=== PATIENT | female | born 1985 | race Caucasian/White ===

== ENCOUNTER → 2016-11-30 | Outpatient (CLI) | payer BC ==
[~2016-11-30] MED LIST: ALBUAER2 INH; BUDE180I INH; LEVO50TA6 PO
[2016-11-30 18:00] LABS: THYROID STIMULATING HORMONE 1.34 uIu/ml (0.300-4.500)
== END | disposition home or self-care (01) ==
LOC: C.LAB1850 16:07
PROVIDERS: ATTEND Physician Assistant
DX: E03.9 Hypothyroidism, unspecified (principal)

== ENCOUNTER → 2017-07-03 | Outpatient (CLI) | payer BC | END | disposition home or self-care (01) | LOC: C.LAB1850 13:42 | PROVIDERS: ATTEND Physician Assistant | DX: E03.9 Hypothyroidism, unspecified (principal) ==

== ENCOUNTER → 2017-10-16 | Outpatient (CLI) | payer BC | END | disposition home or self-care (01) | LOC: C.PAPS 09:37 | PROVIDERS: ATTEND Obstetrics & Gynecology | DX: Z12.4 Encounter for screening for malignant neoplasm of cervix (principal) ==

== ENCOUNTER → 2017-10-16 | Outpatient (CLI) | payer BC ==
[2017-10-16 17:06] LABS: BASO % 0.1 %; BASO ABS # 0.01 K/uL (0-0.2); EOS % 1.5 %; EOS ABS # 0.11 K/uL (0-0.5); HEMATOCRIT 34.1 % (37-47); HEMOGLOBIN 11.2 g/dL (12.0-16.0); IG# 0.02 K/uL (0.00-0.02); LYMPH ABS # 1.44 K/uL (1.2-3.4); MEAN CELL VOLUME 81.2 fL (80-100); MEAN CORPUSCULAR HEMOGLOBIN 26.7 pg (25-34); MEAN CORPUSCULAR HGB CONC 32.8 g/dl (32-36); MEAN PLATELET VOLUME 10.3 fL (7.4-10.4); MONO % 5.7 %; MONO ABS # 0.43 K/uL (0.11-0.59); NEUT % 73.4 %; NEUT ABS # 5.55 K/uL (1.4-6.5); PLATELET COUNT 248 K/uL (130-400); RED CELL DISTRIBUTION WIDTH CV 13.9 % (11.5-14.5); RED CELL DISTRIBUTION WIDTH SD 41.3 fL (36.4-46.3); WHITE BLOOD COUNT 7.56 K/uL (4.8-10.8)
== END | disposition home or self-care (01) ==
LOC: C.LAB1850 15:21
PROVIDERS: ATTEND Obstetrics & Gynecology
DX: O09.521 Supervision of elderly multigravida, first trimester (principal); O99.280 Endocrine, nutritional and metabolic diseases complicating pregnancy, unspecified trimester

== ENCOUNTER → 2017-11-06 | Outpatient (CLI) | payer BC | END | disposition home or self-care (01) | LOC: C.LAB1850 16:26 | PROVIDERS: ATTEND Obstetrics & Gynecology | DX: O99.280 Endocrine, nutritional and metabolic diseases complicating pregnancy, unspecified trimester (principal); Z3A.00 Weeks of gestation of pregnancy not specified ==

== ENCOUNTER → 2018-02-03 | Outpatient (CLI) | payer BC, OTHER | END | disposition home or self-care (01) | LOC: C.LAB1850 15:59 | PROVIDERS: ATTEND Physician Assistant | DX: E03.9 Hypothyroidism, unspecified (principal) ==

== ENCOUNTER 2024-05-26 08:03 | Inpatient (IN) ==
[2024-05-26] MEDS ORDERED: LIDOCAINE 1% LOCAL 20 ML VIAL INFIL PRN (08:33)
[2024-05-26] MEDS ORDERED: CALCIUM CARBONATE 500 MG CHEWABLE TAB PO PRN (08:33)
[2024-05-26] MEDS ORDERED: OXYTOCIN 30 UNITS/NSS 30 UNITS/500 ML BAG IV PRN ×2 (08:33→20:06)
--- NOTE | 2024-05-26 08:47 | History & Physical Report ---
Date of Service May 26, 2024 Assessment & Plan (1) Elderly multigravida: (2) Group beta Strep positive: (3) Large for gestational age fetus affecting management of mother: Plan admit, iv, labs. start pcn for gbs pos. arom when appropriate. start pitocin induction. fhts categ 1. 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 No rom, vb. +FM. No ctx. PNC c/b 1. AMA 2. Hypothyroid 3. GBS pos urine 3. LGA, efw 91% at 36wks PNL rhpos, ri, gbs + OBH: x 4, largest 9# 11oz GYNH: nl paps no stds Allergies Allergy/AdvReac Type Severity Reaction Status Date / Time No Known Drug Allergies Allergy Unknown Verified 05/26/24 08:17 Home Medications Medication Instructions Recorded Confirmed Type albuterol sulfate 90 mcg/actuation 2 puff inhalation QID PRN 09/19/23 05/26/24 Rx aerosol inhaler shortness of breath or wheezing #8.5 grams 21-iron fu-folic acid 1 tab PO DAILY 10/11/23 05/25/24 History [ Complete] ferrous sulfate 325 mg (65 mg 325 mg PO DAILY 03/30/24 05/25/24 History iron) tablet (Feosol) clotrimazole 1 % vaginal cream 1 appful vaginal ONCE #45 grams 04/16/24 05/25/24 Rx Patient History Medical History History of chicken pox Spontaneous Goiter diffuse, nontoxic Hypothyroid History of vaginal delivery Asthma Surgical History [place] teeth extracted Family History Father Hypertension Heart disease Stroke Other No history of previous surgery No known health problems Denies family history of Ovarian cancer Breast cancer Colorectal cancer Uterine cancer Social History Smoking Status: Former smoker Tobacco Type: Cigarettes Age Started Using Tobacco: 12; Age Quit Using Tobacco: 30; packs per day: 0.5; Second Hand Exposure: No; Do You Dip or Chew Tobacco: No; Hx Alcohol Use: Yes Alcohol type: wine Alcohol Intake Frequency: 2-4 x/Month Hx Substance Use: No Preferred Language: Swedish Visual Impairment: No Limitations Hearing Ability: Normal Sde Required: No Beliefs That Will Affect Care: None marital status: marital status details: Jesús Hastings (42) [phone] Current Living Situation: Spouse and Family Current Living Situation Comment: Patient lives with spouse, 4 children, and a dog. current occupational status: employed current occupation: [employer] How many Children do You have: 4 Feels Safe at Home: Yes Safety Concerns: Feels Safe At This Time Childhood Exposure to Second-Hand Smoke: Yes Diet: regular Dental Care, Regularly: Yes Physical Activity Frequency: 3-4 Times per Week Seatbelt Use: always Sunscreen Use: Yes Assistive Devices: None Review of Systems as per Subjective / HPI Physical Exam Constitutional: WD/WN, vitals as above Respiratory: normal respiratory effort, lungs clear to auscultation Cardiovascular: Rate/Rhythm: regular rate and regular rhythm Gastrointestinal (Abdomen): soft gravid nt efw 8-9# Musculoskeletal: no edema nontender calves Neurologic: grossly normal Psychiatric: A+Ox3, euthymic affect Genitourinary: OB Exam Abdomen: + vertex Manual OB Exam: + cervical dilation 3 cm, + cervical effacement 50% and + station -2 OB Exam Monitor Tracing: + external FHT monitor used, + external uterine monitor used, + category I and + normal FHT variability Results & Data Vital Signs (Past 12 Hours) Vital Signs Temp Pulse Resp BP 05/26/24 08:20 98.1 F 100 H 18 105/73 05/26/24 08:13 100 H 105/73 Coding Level of Care Code None Diagnoses Elderly multigravida O09.529 Group beta Strep positive B95.1 Large for gestational age fetus affecting management of mother O36.60X0
[2024-05-26] MEDS: LACTATED RINGER'S 1,000 ML IV SCH (08:55)
[2024-05-26] MEDS: OXYTOCIN 30 UNITS/NSS 30 UNITS/500 ML BAG IV PRN (08:59)
[2024-05-26] MEDS: PENICILLIN GK 6 MU in SODIUM CHLORIDE 0.9% 250 ML IV STA (09:00)
[2024-05-26 10:09] LABS: Hemoglobin 10.5 g/dl (12.0-16.0); Mean Corpuscular Hemoglobin 25.5 pg (25.0-34.0); Mean Corpuscular Hgb Conc 31.8 g/dL (32.0-36.0); Mean Corpuscular Volume 80.3 fL (80.0-100.0); Mean Platelet Volume 11.6 fL (9.4-12.4); Platelet Count 185 K/uL (130-400); RDW Coefficient of Variation 14.3 % (11.5-14.5); RDW Standard Deviation 41.4 fL (36.4-46.3); Red Blood Count 4.11 M/uL (4.20-5.40); White Blood Count 7.04 K/ul (4.8-10.8)
[2024-05-26] MEDS: PENICILLIN GK 3 MU in DEXTROSE 5% 100 ML IV PRN (12:37)
--- NOTE | 2024-05-26 12:38 | Labor Progress Brief Note ---
Date of Service May 26, 2024 Subjective denies pain Assessment & Plan (1) Encounter for induction of labor: (2) Large for gestational age fetus affecting management of mother: (3) Group beta Strep positive: (4) Hypothyroid in , antepartum: (5) Elderly multigravida: Plan will see how arom helps labor pattern. fhts categ 1. pcn for gbs pos. Admission and Anticipated Discharge Date Admission Date: May 26, 2024 Physical Exam Constitutional: WD/WN, vitals as above Genitourinary: Manual OB Exam: + cervical dilation (3-4), + cervical effacement 50%, + station -2 and + amniotic fluid (arom) clear OB Exam Monitor Tracing: + external FHT monitor used, + external uterine monitor used, + category I and + normal FHT variability Results & Data Vital Signs (Past 12 Hours) Vital Signs Temp Pulse Resp BP 05/26/24 12:23 88 05/26/24 12:23 130/78 05/26/24 11:31 85 05/26/24 11:31 117/82 05/26/24 10:28 81 05/26/24 10:28 136/79 05/26/24 09:35 86 05/26/24 09:35 127/81 05/26/24 08:20 98.1 F 100 H 18 105/73 05/26/24 08:13 100 H 105/73 05/26/24 08:12 18 05/26/24 08:12 98.1 F 18 Coding Level of Care Code None Diagnoses Encounter for induction of labor Z34.90 Large for gestational age fetus affecting management of mother O36.60X0 Group beta Strep positive B95.1 Hypothyroid in , antepartum O99.280; E03.9 Elderly multigravida O09.529
[2024-05-26] MEDS: fentANYL 2 MCG/ML BUPIVacaine 0.125%-NSS 100ML BAG ONE (14:43)
[2024-05-26] MEDS: LIDOCAINE 2%/EPINEPHRINE 1:200,000 20 ML PF ONE (14:43)
--- NOTE | 2024-05-26 14:55 | Anesthesiology Consultation ---
Date of Service May 26, 2024 Assessment & Plan Chart Review Chart Review: Acceptable Risk for Labor Epidural Consults Requested none History Height/Weight Height: 5 ft 9.5 in Weight: 128.779 kg Allergies Allergy/AdvReac Type Severity Reaction Status Date / Time No Known Drug Allergies Allergy Unknown Verified 05/26/24 08:17 Medications Home Medications Medication Instructions Recorded Confirmed Last Taken albuterol sulfate 90 mcg/actuation 2 puff inhalation QID PRN 09/19/23 05/26/24 05/24/24 21:00 aerosol inhaler shortness of breath or wheezing #8.5 grams 21-iron fu-folic acid 1 tab PO DAILY 10/11/23 05/25/24 05/26/24 07:00 [ Complete] ferrous sulfate 325 mg (65 mg 325 mg PO DAILY 03/30/24 05/25/24 05/25/24 07:00 iron) tablet (Feosol) clotrimazole 1 % vaginal cream 1 appful vaginal ONCE #45 grams 04/16/24 05/25/24 Unknown Active Medications Generic Name Dose Route Start Last Admin Trade Name Freq PRN Reason Stop Dose Admin Oxytocin 30 units in 500 mls @ 19 mls/hr 05/26/24 08:33 05/26/24 14:00 Pitocin 30 Units/Nss IV 05/28/24 08:32 1.14 units/hr .Q24H PRN 19 mls/hr Labor Induction/Augmentation Titration Protocol 1.14 UNITS/HR Penicillin G Potassium 3 mu/ 106 mls @ 100 mls/hr 05/26/24 11:33 05/26/24 12:37 Dextrose IV 06/05/24 11:32 100 mls/hr Q4H PRN Administration GBS(+) Until Delivery Past Medical History Medical History History of chicken pox Spontaneous Goiter diffuse, nontoxic Hypothyroid History of vaginal delivery Asthma Past Family History Family History Father Hypertension Heart disease Stroke Other No history of previous surgery No known health problems Denies family history of Ovarian cancer Breast cancer Colorectal cancer Uterine cancer Past Surgical History Surgical History [place] teeth extracted Social History Smoking Status: Former smoker Do You Dip or Chew Tobacco: No Hx Alcohol Use: Yes Alcohol type: wine Hx Substance Use: No substance use type: does not use Physical Exam Vital Signs Last Vital Signs Temp 37.1 C 05/26/24 14:21 Pulse 94 H 05/26/24 14:49 Resp 18 05/26/24 14:21 BP 114/58 L 05/26/24 14:47 Pulse Ox 96 05/26/24 14:49 Testing Laboratory Results 05/26/24 09:31
[2024-05-26] MEDS ORDERED: diphenhydrAMINE 50 MG/ML VIAL IV PRN (14:56)
[2024-05-26] MEDS ORDERED: NALBUPHINE HCL INJ 10 MG/ML AMP IV PRN (14:56)
[2024-05-26] MEDS ORDERED: SODIUM CHLORIDE 0.9% PF INJ 10 ML VIAL EPI PRN (14:56)
[2024-05-26] MEDS ORDERED: fentaNYL citrate PF 100 MCG/2 ML VIAL EPI PRN (14:56)
[2024-05-26] MEDS ORDERED: NALOXONE HCL 1 MG in SODIUM CHLORIDE 0.9% 1,000 ML IV PRN (14:56)
[2024-05-26] MEDS ORDERED: ROPIVACAINE 0.5% PF 5 MG/ML 20 ML VIAL EPI PRN (14:56)
[2024-05-26] MEDS ORDERED: NALOXONE HCL 0.4 MG/1 ML VIAL/CARP IV PRN (14:56)
[2024-05-26] MEDS ORDERED: LIDOCAINE 2% MPF LOCAL 5 ML VIAL EPI PRN (14:56)
[2024-05-26] MEDS ORDERED: BUPIVACAINE 0.25% PF 30 ML VIAL EPI PRN (14:56)
[2024-05-26] MEDS ORDERED: fentANYL 2 MCG/ML BUPIVacaine 0.125%-NSS 100ML BAG EPI PRN (14:56)
[2024-05-26] MEDS ORDERED: ePHEDrine sulfate 50 MG/ML AMP IV PRN (14:56)
[2024-05-26] MEDS: fentaNYL citrate PF 100 MCG/2 ML VIAL EPI STA (15:14)
[2024-05-26] MEDS: BUPIVACAINE 0.25% PF 30 ML VIAL EPI STA (15:14)
[2024-05-26] MEDS: SODIUM CHLORIDE 0.9% PF INJ 10 ML VIAL EPI STA (15:15)
[2024-05-26] MEDS: SODIUM CHLORIDE 0.9% PF INJ 10 ML VIAL ONE (15:17)
[2024-05-26] MEDS: LIDOCAINE 2%/EPINEPHRINE 1:200,000 20 ML PF EPI STA (15:17)
[2024-05-26] MEDS: BUPIVACAINE 0.25% PF 30 ML VIAL ONE (15:18)
[2024-05-26] MEDS: fentaNYL citrate PF 100 MCG/2 ML VIAL ONE (15:18)
--- NOTE | 2024-05-26 16:38 | Labor Progress Brief Note ---
Date of Service May 26, 2024 Subjective comfortable with epidural Assessment & Plan (1) Encounter for induction of labor: (2) Large for gestational age fetus affecting management of mother: (3) Group beta Strep positive: (4) Hypothyroid in , antepartum: (5) Elderly multigravida: Plan good cx change. c/w pit. fhts categ 1. Admission and Anticipated Discharge Date Admission Date: May 26, 2024 Physical Exam Constitutional: WD/WN, vitals as above Genitourinary: Manual OB Exam: + cervical dilation 6 cm, + cervical effacement 80% and + station -2 OB Exam Monitor Tracing: + external FHT monitor used, + external uterine monitor used (q3, not traced well. pit at 19), + category I and + normal FHT variability Results & Data Vital Signs (Past 12 Hours) Vital Signs Temp Pulse Resp BP Pulse Ox 05/26/24 16:35 94 05/26/24 16:35 90 05/26/24 16:34 94 05/26/24 16:34 89 05/26/24 16:34 89 05/26/24 16:34 114/66 05/26/24 16:29 97 05/26/24 16:29 97 H 05/26/24 16:24 95 05/26/24 16:24 87 05/26/24 16:22 94 05/26/24 16:22 91 H 05/26/24 16:19 97 05/26/24 16:19 89 05/26/24 16:16 93 05/26/24 16:16 84 05/26/24 16:14 96 05/26/24 16:14 97 H 05/26/24 16:10 93 05/26/24 16:10 84 05/26/24 16:09 97 05/26/24 16:09 84 05/26/24 16:04 94 05/26/24 16:04 99 H 05/26/24 16:04 93 05/26/24 16:04 91 H 05/26/24 16:04 108/69 05/26/24 15:59 99 05/26/24 15:59 106 H 05/26/24 15:54 95 05/26/24 15:54 92 H 05/26/24 15:51 93 05/26/24 15:51 93 H 05/26/24 15:49 94 05/26/24 15:49 95 H 05/26/24 15:49 108/69 05/26/24 15:45 94 05/26/24 15:45 104 H 05/26/24 15:44 95 05/26/24 15:44 121 H 05/26/24 15:40 94 05/26/24 15:40 103 H 05/26/24 15:39 96 05/26/24 15:39 96 H 05/26/24 15:36 96 H 05/26/24 15:36 104/58 L 05/26/24 15:35 16 05/26/24 15:35 98.2 F 16 05/26/24 15:34 97 05/26/24 15:34 110 H 05/26/24 15:33 94 05/26/24 15:33 95 H 05/26/24 15:29 93 05/26/24 15:29 100 H 05/26/24 15:27 94 05/26/24 15:27 96 H 05/26/24 15:24 95 05/26/24 15:24 90 05/26/24 15:21 94 05/26/24 15:21 93 H 05/26/24 15:19 97 05/26/24 15:19 110 H 05/26/24 15:19 99/55 L 05/26/24 15:14 94 05/26/24 15:14 94 H 05/26/24 15:09 95 05/26/24 15:09 106 H 05/26/24 15:09 94 05/26/24 15:09 99 H 05/26/24 15:04 96 05/26/24 15:04 120 H 05/26/24 15:04 108 H 05/26/24 15:04 109/58 L 05/26/24 15:03 94 05/26/24 15:03 97 H 05/26/24 14:59 96 05/26/24 14:59 92 H 05/26/24 14:54 95 05/26/24 14:54 91 H 05/26/24 14:49 96 05/26/24 14:49 94 H 05/26/24 14:47 97 H 05/26/24 14:47 114/58 L 05/26/24 14:46 93 05/26/24 14:46 95 H 05/26/24 14:46 84/60 L 05/26/24 14:44 95 05/26/24 14:44 99 H 05/26/24 14:44 109/55 L 05/26/24 14:42 96 H 05/26/24 14:42 126/67 05/26/24 14:40 86 05/26/24 14:40 129/78 05/26/24 14:39 96 05/26/24 14:39 89 05/26/24 14:34 97 05/26/24 14:34 104 H 05/26/24 14:29 97 05/26/24 14:29 106 H 05/26/24 14:24 96 05/26/24 14:24 89 05/26/24 14:23 85 05/26/24 14:23 131/84 05/26/24 14:21 18 05/26/24 14:21 98.8 F 18 05/26/24 14:19 95 05/26/24 14:19 90 05/26/24 14:14 96 05/26/24 14:14 85 05/26/24 14:09 95 05/26/24 14:09 85 05/26/24 14:06 93 05/26/24 14:06 98 H 05/26/24 14:04 97 05/26/24 14:04 89 05/26/24 13:59 97 05/26/24 13:59 96 H 05/26/24 13:31 87 05/26/24 13:31 111/81 05/26/24 13:30 18 05/26/24 13:30 98.1 F 18 05/26/24 12:38 97.9 F 05/26/24 12:23 88 05/26/24 12:23 130/78 05/26/24 11:31 85 05/26/24 11:31 117/82 05/26/24 10:28 81 05/26/24 10:28 136/79 05/26/24 09:35 86 05/26/24 09:35 127/81 05/26/24 08:20 98.1 F 100 H 18 105/73 05/26/24 08:13 100 H 105/73 05/26/24 08:12 18 05/26/24 08:12 98.1 F 18 Coding Level of Care Code None Diagnoses Encounter for induction of labor Z34.90 Large for gestational age fetus affecting management of mother O36.60X0 Group beta Strep positive B95.1 Hypothyroid in , antepartum O99.280; E03.9 Elderly multigravida O09.529
--- NOTE | 2024-05-26 18:30 | Labor Progress Brief Note ---
Date of Service May 26, 2024 Subjective feeling some increased pain with labor Assessment & Plan (1) Encounter for induction of labor: (2) Large for gestational age fetus affecting management of mother: (3) Group beta Strep positive: (4) Hypothyroid in , antepartum: (5) Elderly multigravida: Plan good cx change. c/w pit. fhts categ 1. Admission and Anticipated Discharge Date Admission Date: May 26, 2024 Physical Exam Constitutional: WD/WN, vitals as above Genitourinary: Manual OB Exam: + cervical dilation (ant lip), + cervical effacement 100% and + station + 1 OB Exam Monitor Tracing: + external FHT monitor used, + external uterine monitor used (q2-3 pit at 27), + category I and + normal FHT variability Results & Data Vital Signs (Past 12 Hours) Vital Signs Temp Pulse Resp BP Pulse Ox 05/26/24 18:24 96 05/26/24 18:24 98 H 05/26/24 18:19 96 05/26/24 18:19 95 H 05/26/24 18:15 90 05/26/24 18:15 113/64 05/26/24 18:14 95 05/26/24 18:14 92 H 05/26/24 18:09 96 05/26/24 18:09 92 H 05/26/24 18:07 94 05/26/24 18:07 95 H 05/26/24 18:04 96 05/26/24 18:04 95 H 05/26/24 18:00 94 05/26/24 18:00 89 05/26/24 18:00 132/80 05/26/24 17:59 96 05/26/24 17:59 89 05/26/24 17:54 95 05/26/24 17:54 93 H 05/26/24 17:51 94 05/26/24 17:51 92 H 05/26/24 17:49 96 05/26/24 17:49 101 H 05/26/24 17:45 90 05/26/24 17:45 95/50 L 05/26/24 17:44 96 05/26/24 17:44 93 H 05/26/24 17:43 94 05/26/24 17:43 93 H 05/26/24 17:40 18 05/26/24 17:40 99.1 F 18 05/26/24 17:39 95 05/26/24 17:39 92 H 05/26/24 17:36 94 05/26/24 17:36 91 H 05/26/24 17:34 95 05/26/24 17:34 95 H 05/26/24 17:32 93 H 05/26/24 17:32 96/52 L 05/26/24 17:30 94 05/26/24 17:30 92 H 05/26/24 17:29 97 05/26/24 17:29 98 H 05/26/24 17:24 97 05/26/24 17:24 92 H 05/26/24 17:19 98 05/26/24 17:19 94 H 05/26/24 17:17 94 H 05/26/24 17:17 112/65 05/26/24 17:14 97 05/26/24 17:14 100 H 05/26/24 17:09 96 05/26/24 17:09 92 H 05/26/24 17:04 96 05/26/24 17:04 93 H 05/26/24 17:04 94 05/26/24 17:04 92 H 05/26/24 17:02 95 H 05/26/24 17:02 103/54 L 05/26/24 16:59 95 05/26/24 16:59 112 H 05/26/24 16:54 94 05/26/24 16:54 97 H 05/26/24 16:50 93 05/26/24 16:50 91 H 05/26/24 16:49 96 05/26/24 16:49 96 H 05/26/24 16:44 95 05/26/24 16:44 93 H 05/26/24 16:44 94 05/26/24 16:44 93 H 05/26/24 16:40 16 05/26/24 16:40 99.1 F 16 05/26/24 16:39 96 05/26/24 16:39 89 05/26/24 16:35 94 05/26/24 16:35 90 05/26/24 16:34 94 05/26/24 16:34 89 05/26/24 16:34 89 05/26/24 16:34 114/66 05/26/24 16:29 97 05/26/24 16:29 97 H 05/26/24 16:24 95 05/26/24 16:24 87 05/26/24 16:22 94 05/26/24 16:22 91 H 05/26/24 16:19 97 05/26/24 16:19 89 05/26/24 16:16 93 05/26/24 16:16 84 05/26/24 16:14 96 05/26/24 16:14 97 H 05/26/24 16:10 93 05/26/24 16:10 84 05/26/24 16:09 97 05/26/24 16:09 84 05/26/24 16:04 94 05/26/24 16:04 99 H 05/26/24 16:04 93 05/26/24 16:04 91 H 05/26/24 16:04 108/69 05/26/24 15:59 99 05/26/24 15:59 106 H 05/26/24 15:54 95 05/26/24 15:54 92 H 05/26/24 15:51 93 05/26/24 15:51 93 H 05/26/24 15:49 94 05/26/24 15:49 95 H 05/26/24 15:49 108/69 05/26/24 15:45 94 05/26/24 15:45 104 H 05/26/24 15:44 95 05/26/24 15:44 121 H 05/26/24 15:40 94 05/26/24 15:40 103 H 05/26/24 15:39 96 05/26/24 15:39 96 H 05/26/24 15:36 96 H 05/26/24 15:36 104/58 L 05/26/24 15:35 16 05/26/24 15:35 98.2 F 16 05/26/24 15:34 97 05/26/24 15:34 110 H 05/26/24 15:33 94 05/26/24 15:33 95 H 05/26/24 15:29 93 05/26/24 15:29 100 H 05/26/24 15:27 94 05/26/24 15:27 96 H 05/26/24 15:24 95 05/26/24 15:24 90 05/26/24 15:21 94 05/26/24 15:21 93 H 05/26/24 15:19 97 05/26/24 15:19 110 H 05/26/24 15:19 99/55 L 05/26/24 15:14 94 05/26/24 15:14 94 H 05/26/24 15:09 95 05/26/24 15:09 106 H 05/26/24 15:09 94 05/26/24 15:09 99 H 05/26/24 15:04 96 05/26/24 15:04 120 H 05/26/24 15:04 108 H 05/26/24 15:04 109/58 L 05/26/24 15:03 94 05/26/24 15:03 97 H 05/26/24 14:59 96 05/26/24 14:59 92 H 05/26/24 14:54 95 05/26/24 14:54 91 H 05/26/24 14:49 96 05/26/24 14:49 94 H 05/26/24 14:47 97 H 05/26/24 14:47 114/58 L 05/26/24 14:46 93 05/26/24 14:46 95 H 05/26/24 14:46 84/60 L 05/26/24 14:44 95 05/26/24 14:44 99 H 05/26/24 14:44 109/55 L 05/26/24 14:42 96 H 05/26/24 14:42 126/67 05/26/24 14:40 86 05/26/24 14:40 129/78 05/26/24 14:39 96 05/26/24 14:39 89 05/26/24 14:34 97 05/26/24 14:34 104 H 05/26/24 14:29 97 05/26/24 14:29 106 H 05/26/24 14:24 96 05/26/24 14:24 89 05/26/24 14:23 85 05/26/24 14:23 131/84 05/26/24 14:21 18 05/26/24 14:21 98.8 F 18 05/26/24 14:19 95 05/26/24 14:19 90 05/26/24 14:14 96 05/26/24 14:14 85 05/26/24 14:09 95 05/26/24 14:09 85 05/26/24 14:06 93 05/26/24 14:06 98 H 05/26/24 14:04 97 05/26/24 14:04 89 05/26/24 13:59 97 05/26/24 13:59 96 H 05/26/24 13:31 87 05/26/24 13:31 111/81 05/26/24 13:30 18 05/26/24 13:30 98.1 F 18 05/26/24 12:38 97.9 F 05/26/24 12:23 88 05/26/24 12:23 130/78 05/26/24 11:31 85 05/26/24 11:31 117/82 05/26/24 10:28 81 05/26/24 10:28 136/79 05/26/24 09:35 86 05/26/24 09:35 127/81 05/26/24 08:20 98.1 F 100 H 18 105/73 05/26/24 08:13 100 H 105/73 05/26/24 08:12 18 05/26/24 08:12 98.1 F 18 Coding Level of Care Code None Diagnoses Encounter for induction of labor Z34.90 Large for gestational age fetus affecting management of mother O36.60X0 Group beta Strep positive B95.1 Hypothyroid in , antepartum O99.280; E03.9 Elderly multigravida O09.529
[2024-05-26] MEDS: NURSING L&D Epidural Breakthrough Pain Update ONE (18:46)
[2024-05-26] MEDS: miSOPROStoL 200 MCG TAB PR ONE (19:45)
[2024-05-26] MEDS: METHYLERGONOVINE MALEATE 0.2 MG/ML AMP IM ONE (19:48)
[2024-05-26] MEDS: ePHEDrine sulfate 50 MG/ML AMP ONE (19:58)
--- NOTE | 2024-05-26 20:02 | Delivery Summary ---
Vaginal Delivery Summary Date of Service May 26, 2024 Vaginal Delivery Summary The patient dilated to complete and pushed to deliver a viable male Apgars 7 and 10 via over intact perineum. Mouth and nose bulb suctioned at perineum. Body cord noted. Shoulders and body delivered with ease. was vigorous and crying at . Cord clamped at 30 seconds of life and infant to maternal abdomen where the cord was then doubly clamped and cut. Placenta delivered spontaneously and intact, three-vessel cord. Hemostasis not achieved with dilute pitocin and uterine massage and drainage of the bladder for approximately 200 cc under sterile conditions. Bimanual massage started and bp checked. Rectal cytotec 1000mcg given and IM methergine given. Gushing still noted and cavity still able to be explored and no evidence of retained products. Therefore coco readied, however when just about to place device, LIZET began to contract down. With massage and further observation, hemostasis improved. Cervix and sulci intact. QBL 744cc. Mother and baby stable in recovery. Circumstances of management of her uterine atony reviewed with couple. They denied further questions. Given explored cavity x multiple, rec 3 doses of kefzol, couple aware. [facility] Vaginal Delivery Charge Delivery Type Details:
[2024-05-26] MEDS ORDERED: HYDROCORTISONE ACETATE 25 MG SUPP PR PRN (20:06)
[2024-05-26] MEDS ORDERED: ACETAMINOPHEN 325 MG TAB PO PRN (20:06)
[2024-05-26] MEDS ORDERED: oxyCODONE/ACETAMINOPHEN 5mg/325mg TAB PO PRN (20:06)
[2024-05-26] MEDS ORDERED: ALBUTEROL HFA 8 GM INHALER INH PRN (20:06)
[2024-05-26] MEDS ORDERED: BENZOCAINE 20% SPRY 85 APPLN/85 GM CAN EXT PRN (20:06)
[2024-05-26] MEDS: DIPHTHER/TETAN/PERTUS Vaccine (Tdap, Adol/Adult) 0.5mL IM ONE (20:19)
[2024-05-26] MEDS: DOCUSATE SODIUM 100 MG CAP PO SCH (20:26)
--- NOTE | 2024-05-26 21:34 | Anesthesia Procedure Note ---
Date of Service May 26, 2024 Anesthesia Post Epidural Note Vital Signs Vital Signs: Temp Pulse Resp BP Pulse Ox 37.3 C 107 H 18 89/64 L 97 05/26/24 17:40 05/26/24 21:32 05/26/24 17:40 05/26/24 21:32 05/26/24 21:29 Pain Intensity Lower Abdomen: Pain Intensity: 6 Notes Mental Status: alert / awake / arousable Nausea / Vomiting: adequately controlled Pain: adequately controlled Airway Patency, RR, SpO2: stable & adequate BP & HR: stable & adequate Hydration State: stable & adequate Neuraxial Anesthesia: was administered and sensory block is resolving Anesthetic Complications: no major complications apparent and Pt Satisfied with anesthetic care Epidural: Removed without complications and With tip intact
[2024-05-26] MEDS: ceFAZolin 2000MG 2,000 MG/15 ML SYR IV SCH (21:53)
--- NOTE | 2024-05-27 06:10 | Obstetrical Progress Note ---
Date of Service <Aravind Hankins MD - Last Filed: 05/27/24 07:30> May 27, 2024 Assessment & Plan <Aravind Hankins MD - Last Filed: 05/27/24 07:30> (1) Group beta Strep positive: (2) Elderly multigravida: (3) care and examination: Plan PPD#1 s/p term : Stable. Rh+, gbs +, ri, vitals & H/H noted Continue routine care, continue OOB and ambulation, diet as tolerated Would like to go home tonight <Zina Dickerson MD, FACOG - Last Filed: 05/27/24 08:10> (1) Group beta Strep positive: (2) Elderly multigravida: (3) care and examination: Subjective <Aravind Hankins MD - Last Filed: 05/27/24 07:30> Yovani is a 39 y/o female who is PPD#1 following at term. Reports having no pain Is voiding, eating, ambulating normally Having appropriate lochia Planning for exclusive . Constitutional: no fever, no chills or no sweats Respiratory: no dyspnea Cardiovascular: no chest pain, no palpitations or no calf pain Breast: no breast pain Gastrointestinal: no nausea or no vomiting Genitourinary (female): no dysuria Neurologic: no headache(s) no changes in vision, no headaches Physical Exam <Aravind Hankins MD - Last Filed: 05/27/24 07:30> General: Alert, oriented. No acute distress. Cardiac: Regular rate and rhythm, no murmurs, rubs, or gallops. Respiratory: Clear to auscultation bilaterally. No increased work of breathing. Symmetrical chest rise. No respiratory distress. Abdomen: Soft, nontender, nondistended. Bowel sounds present. Uterus: Uterine fundus firm, nontender, palpable at the level of the umbilicus Lower extremities: No lower extremity edema or swelling. No deep calf pain. Results & Data <Aravind Hankins MD - Last Filed: 05/27/24 07:30> Vital Signs (Past 12 Hours) Vital Signs Temp Pulse Pulse Pulse Resp BP BP 05/27/24 03:15 36.8 C 93 H 18 111/71 05/26/24 23:15 37.1 C 102 H 18 130/79 05/26/24 21:59 05/26/24 21:59 107 H 05/26/24 21:54 05/26/24 21:54 107 H 05/26/24 21:54 133/62 05/26/24 21:53 05/26/24 21:53 107 H 05/26/24 21:49 05/26/24 21:49 114 H 05/26/24 21:44 05/26/24 21:44 106 H 05/26/24 21:42 05/26/24 21:42 108 H 05/26/24 21:39 05/26/24 21:39 105 H 05/26/24 21:34 05/26/24 21:34 109 H 05/26/24 21:32 107 H 05/26/24 21:32 89/64 L 05/26/24 21:29 05/26/24 21:29 101 H 05/26/24 21:24 05/26/24 21:24 104 H 05/26/24 21:19 05/26/24 21:19 107 H 05/26/24 21:14 05/26/24 21:14 104 H 05/26/24 21:12 05/26/24 21:12 101 H 05/26/24 21:09 05/26/24 21:09 101 H 05/26/24 21:04 05/26/24 21:04 99 H 05/26/24 21:02 97 H 05/26/24 21:02 122/91 05/26/24 20:59 05/26/24 20:59 105 H 05/26/24 20:54 05/26/24 20:54 102 H 05/26/24 20:49 05/26/24 20:49 99 H 05/26/24 20:45 102 H 05/26/24 20:45 142/77 H 05/26/24 20:44 05/26/24 20:44 104 H 05/26/24 20:42 05/26/24 20:42 105 H 05/26/24 20:39 05/26/24 20:39 102 H 05/26/24 20:37 105 H 05/26/24 20:37 141/76 H 05/26/24 20:34 05/26/24 20:34 98 H 05/26/24 20:29 05/26/24 20:29 100 H 05/26/24 20:28 05/26/24 20:28 99 H 05/26/24 20:24 05/26/24 20:24 97 H 05/26/24 20:19 05/26/24 20:19 101 H 05/26/24 20:17 98 H 05/26/24 20:17 120/79 05/26/24 20:14 05/26/24 20:14 97 H 05/26/24 20:09 05/26/24 20:09 100 H 05/26/24 20:04 05/26/24 20:04 97 H 05/26/24 20:00 93 H 05/26/24 20:00 133/62 05/26/24 19:59 05/26/24 19:59 95 H 05/26/24 19:54 05/26/24 19:54 105 H 05/26/24 19:51 109 H 05/26/24 19:51 131/70 05/26/24 19:49 05/26/24 19:49 111 H 05/26/24 19:45 93 H 05/26/24 19:45 126/82 05/26/24 19:44 05/26/24 19:44 104 H 05/26/24 19:39 05/26/24 19:39 120 H 05/26/24 19:34 05/26/24 19:34 97 H 05/26/24 19:30 96 H 05/26/24 19:30 124/77 05/26/24 19:29 05/26/24 19:29 98 H 05/26/24 19:24 05/26/24 19:24 99 H 05/26/24 19:19 05/26/24 19:19 96 H 05/26/24 19:16 95 H 05/26/24 19:16 125/85 05/26/24 19:14 05/26/24 19:14 102 H 05/26/24 19:09 05/26/24 19:09 93 H 05/26/24 19:04 05/26/24 19:04 93 H 05/26/24 19:00 89 05/26/24 19:00 114/72 05/26/24 18:59 05/26/24 18:59 93 H 05/26/24 18:54 05/26/24 18:54 90 05/26/24 18:49 05/26/24 18:49 95 H 05/26/24 18:45 88 05/26/24 18:45 119/72 05/26/24 18:44 05/26/24 18:44 91 H 05/26/24 18:39 05/26/24 18:39 89 05/26/24 18:34 05/26/24 18:34 92 H 05/26/24 18:30 87 05/26/24 18:30 113/65 05/26/24 18:29 05/26/24 18:29 93 H 05/26/24 18:24 05/26/24 18:24 98 H 05/26/24 18:19 05/26/24 18:19 95 H 05/26/24 18:15 90 05/26/24 18:15 113/64 05/26/24 18:14 05/26/24 18:14 92 H 05/26/24 18:09 05/26/24 18:09 92 H Pulse Ox O2 Del Method 05/27/24 03:15 96 Room Air 05/26/24 23:15 96 Room Air 05/26/24 21:59 95 05/26/24 21:59 05/26/24 21:54 94 05/26/24 21:54 05/26/24 21:54 05/26/24 21:53 94 05/26/24 21:53 05/26/24 21:49 96 05/26/24 21:49 05/26/24 21:44 95 05/26/24 21:44 05/26/24 21:42 94 05/26/24 21:42 05/26/24 21:39 95 05/26/24 21:39 05/26/24 21:34 95 05/26/24 21:34 05/26/24 21:32 05/26/24 21:32 05/26/24 21:29 97 05/26/24 21:29 05/26/24 21:24 95 05/26/24 21:24 05/26/24 21:19 96 05/26/24 21:19 05/26/24 21:14 96 05/26/24 21:14 05/26/24 21:12 93 05/26/24 21:12 05/26/24 21:09 97 05/26/24 21:09 05/26/24 21:04 98 05/26/24 21:04 05/26/24 21:02 05/26/24 21:02 05/26/24 20:59 97 05/26/24 20:59 05/26/24 20:54 96 05/26/24 20:54 05/26/24 20:49 98 05/26/24 20:49 05/26/24 20:45 05/26/24 20:45 05/26/24 20:44 98 05/26/24 20:44 05/26/24 20:42 91 05/26/24 20:42 05/26/24 20:39 98 05/26/24 20:39 05/26/24 20:37 05/26/24 20:37 05/26/24 20:34 80 L 05/26/24 20:34 05/26/24 20:29 95 05/26/24 20:29 05/26/24 20:28 94 05/26/24 20:28 05/26/24 20:24 97 05/26/24 20:24 05/26/24 20:19 96 05/26/24 20:19 05/26/24 20:17 05/26/24 20:17 05/26/24 20:14 97 05/26/24 20:14 05/26/24 20:09 96 05/26/24 20:09 05/26/24 20:04 97 05/26/24 20:04 05/26/24 20:00 05/26/24 20:00 05/26/24 19:59 96 05/26/24 19:59 05/26/24 19:54 96 05/26/24 19:54 05/26/24 19:51 05/26/24 19:51 05/26/24 19:49 95 05/26/24 19:49 05/26/24 19:45 05/26/24 19:45 05/26/24 19:44 96 05/26/24 19:44 05/26/24 19:39 98 05/26/24 19:39 05/26/24 19:34 97 05/26/24 19:34 05/26/24 19:30 05/26/24 19:30 05/26/24 19:29 97 05/26/24 19:29 05/26/24 19:24 95 05/26/24 19:24 05/26/24 19:19 95 05/26/24 19:19 05/26/24 19:16 05/26/24 19:16 05/26/24 19:14 96 05/26/24 19:14 05/26/24 19:09 97 05/26/24 19:09 05/26/24 19:04 96 05/26/24 19:04 05/26/24 19:00 05/26/24 19:00 05/26/24 18:59 96 05/26/24 18:59 05/26/24 18:54 96 05/26/24 18:54 05/26/24 18:49 96 05/26/24 18:49 05/26/24 18:45 05/26/24 18:45 05/26/24 18:44 96 05/26/24 18:44 05/26/24 18:39 95 05/26/24 18:39 05/26/24 18:34 95 05/26/24 18:34 05/26/24 18:30 05/26/24 18:30 05/26/24 18:29 95 05/26/24 18:29 05/26/24 18:24 96 05/26/24 18:24 05/26/24 18:19 96 05/26/24 18:19 05/26/24 18:15 05/26/24 18:15 05/26/24 18:14 95 05/26/24 18:14 05/26/24 18:09 96 05/26/24 18:09 Laboratory Results Hgb 10.4 g/dl (12.0-16.0) L 05/27/24 05:57 Hct 31.7 % (37.0-47.0) L 05/27/24 05:57 Supervising Physician <Zina Dickerson MD, FACOG - Last Filed: 05/27/24 08:10> Co-Signing Physician Notes Resident Physician Supervision Note: I was present with Dr. Hankins during the history and exam. I discussed the case with the resident and agree with the findings and plan as documented in the note. Any exceptions or clarifications are listed here: stable, routine care. eating, voiding, ambulating. no bleeding issues. wants to go home later today. abd soft ff at u,nt, ext nt calves. ppd#1 s/p , instructions reviewed, breast, rhpos, ri. f/u 6 wk pp check. Documented By: Zina Dickerson MD, FACOG Resident Activity Tracking <Aravind Hankins MD - Last Filed: 05/27/24 07:30> Resident Involvement: Resident Care Provided Care Provided: Adult Hospital Medicine and OB Delivery
[2024-05-27 06:21] LABS: Hematocrit (blood only) 31.7 % (37.0-47.0); Hemoglobin 10.4 g/dl (12.0-16.0)
[2024-05-27] MEDS: PRENATAL VITAMIN 1 TAB PO SCH (07:43)
[2024-05-27] MEDS ORDERED: INFLUENZA VACC TS2024-25(6m+)/PF (IIV3) 0.5mL Syr IM ONE (09:00)
[2024-05-27 12:22] VITALS: RESP 16; O2SAT 97
[2024-05-27] MEDS: IBUPROFEN 600 MG TAB PO PRN (13:38)
[2024-05-27 16:13] VITALS: BP 120/74; TEMP 97.9
[2024-05-27 16:34] VITALS: PULSE 102
[2024-05-27] MEDS ORDERED: bisacodyL 5 MG TABEC PO SCH (20:00)
== END 2024-05-27 20:45 | disposition home or self-care (01) | DRG 807 ==
LOC: 4S1 08:03 → 4E2 22:20